=== PATIENT | female | born 1970 | race Caucasian/White ===

== ENCOUNTER 2018-03-06 14:42 | Day surgery (SDC) | payer OTHER ==
[2018-03-05 15:23] VITALS: BMI 28.1
[2018-03-06] MEDS ORDERED: PROPOFOL 20 ML ONE (15:57)
[2018-03-06] MEDS ORDERED: MIDAZOLAM HCL 2 MG/2 ML SINGLE DOSE VIAL ONE (15:57)
[2018-03-06] MEDS ORDERED: KETOROLAC TROMETHAMINE 30 MG/1 ML VIAL ONE (16:53)
--- NOTE | 2018-03-06 16:56 | OP ---
Operative Note - Note: Operative Date: 03/06/18 Pre-Operative Diagnosis: Menometrorrhagia, cervical leukoplakia Operation: Hysteroscopy, D&C, cervical Bx Findings: Normal uterine cavity w/o lesions Post-Operative Diagnosis: Same as Pre-op Surgeon: Felix Hobbs Anesthesiologist/[employer] EXECUTIVE: Praveen Minaya Anesthesia: General Specimens Removed: Cervical Bx, endometrial curettings Estimated Blood Loss (mls): 5 Blood Volume Replaced (mls): 0 Fluid Volume Replaced (mls): 700 Operative Report Dictated: Yes
[2018-03-06] MEDS ORDERED: ACETAMINOPHEN INJECTION 100 ML IVPB ONE (17:29)
[2018-03-06] MEDS ORDERED: ONDANSETRON 4 MG/2 ML VIAL IVPUSH PRN (18:37)
[2018-03-06] MEDS ORDERED: ACETAMINOPHEN 1000 MG/100 ML VIAL (NON FORMULARY) IVPB ONE (18:38)
[2018-03-06] MEDS ORDERED: LACTATED RINGERS SOLUTION 1,000 ML IV SCH (18:45)
[2018-03-06 19:31] VITALS: BP 127/77; PULSE 60; TEMP 98
--- NOTE | 2018-03-07 07:48 | OP ---
DATE OF OPERATION: 03/06/2018 PREOPERATIVE DIAGNOSIS: Menometrorrhagia, cervical leukoplakia. POSTOPERATIVE DIAGNOSIS: Menometrorrhagia, cervical leukoplakia. PROCEDURE: Hysteroscopy, dilatation and curettage, cervical biopsy. SURGEON: Felix Hobbs MD ANESTHESIA: General. COMPLICATIONS: None. ESTIMATED BLOOD LOSS: 5 mL PATHOLOGY: Endometrial curettings, cervical biopsy. FINDINGS: Examination under anesthesia revealed a slightly retroverted uterus with mild hypertrophy. The cervix had a small area of leukoplakia at approximately 11 to 12 o'clock. During hysteroscopy, a slightly enlarged endometrial cavity was noted. There were no lesions. DESCRIPTION OF PROCEDURE: The patient was met preoperatively. Risks, benefits, and alternatives of surgery were discussed. All questions were answered. The patient was brought to the OR with the IV running. She was placed on the surgical table in the supine position. The general anesthesia was achieved without difficulty. The patient was then placed in a dorsal lithotomy position using adjustable Anuj stirrups. She was examined under anesthesia with the findings as described above. A timeout was conducted as per standard protocol. The patient was prepped and draped in the usual sterile fashion. A weighted speculum was introduced inside the vagina with good visualization of the cervix. The cervix was examined, and a previously observed area of leukoplakia between 11 and 12 o'clock was noted. That area was biopsied. Hysteroscopy was then performed. A diagnostic hysteroscope was introduced through the cervical canal and into the uterine cavity with the findings as described above. There were no lesions. A slightly enlarged but normal endometrial cavity was observed. The hysteroscope was then removed. A sharp uterine curettage was performed. The tissue was sent to Pathology. Once the procedure was completed, all of the instruments were removed from the patient. Good hemostasis was confirmed. Sponge, lap, and instrument counts were correct. The patient was transferred to recovery room in stable condition. Santhosh [id number]
--- NOTE | 2018-03-11 17:42 | PATH ---
Surgical Pathology Report Patient Name: MELINDA VILLATORO [facility]. Rec. #: [id number] /Age/Gender: 1970 (Age: 47) / F Account: [id number] Location: [facility] Taken: 03/06/2018 Received: 03/07/2018 Reported: 03/11/2018 Physicians: Felix Hobbs M.D. Specimen(s) Received A: CERVICAL BIOPSY B: CERVICAL CURETTINGS Clinical History Fibroid uterus, leukoplakia of cervix, excessive bleeding Final Diagnosis A. CERVICAL, BIOPSY: BENIGN CERVICAL MUCOSA WITH FOCAL PARAKERATOSIS. SEE COMMENT. B. CERVICAL CURETTINGS, DILATION AND CURETTAGE: WEAKLY PROLIFERATIVE ENDOMETRIUM WITH ENDOMETRIAL AND STROMAL BREAKDOWN, SURFACE MYOMETRIUM, AND SCANT BENIGN CERVICAL TISSUE. Comment: Part A, immunohistochemical stains performed at [place], [place] ([id number]) and interpreted at [facility] show p16 shows weak patchy staining. Proliferative marker, Ki-67, was utilized to evaluate this case. Electronically Signed Ksenia Garcia M.D. Gross Description A. Received in formalin labeled "cervical biopsy," is a 0.7 cm in greatest dimension li, irregular portion of soft tissue. The specimen is submitted in toto in one cassette. B. Received in formalin labeled "cervical curettings" is a 2.5 x 2.4 x 0.3 cm aggregate of li-brown soft tissue fragments. The formalin is filtered and the specimen is entirely submitted in one cassette. /03/07/2018 saudi03/07/2018
== END 2018-03-06 19:45 | disposition home or self-care (01) ==
LOC: JASU-SURG 14:42
PROVIDERS: ATTEND Obstetrics & Gynecology
PROC: 0UBC8ZX Excision of Cervix, Via Natural or Artificial Opening Endoscopic, Diagnostic (ICD-10-PCS; principal; 2018-03-06 16:00)
PROC: 0UDB7ZX Extraction of Endometrium, Via Natural or Artificial Opening, Diagnostic (ICD-10-PCS; 2018-03-06 16:00)
DX: N92.1 Excessive and frequent menstruation with irregular cycle (principal); N88.0 Leukoplakia of cervix uteri
CPT/HCPCS: 86850; 86900; 86901; 88305-TC; 94760; J0131

== ENCOUNTER 2020-10-15 11:06 | Emergency (ER) | payer OTHER ==
[2020-10-15 11:20] VITALS: BP 120/79; PULSE 65; TEMP 97.5; BMI 29.4
== END 2020-10-15 12:26 | disposition home or self-care (01) ==
LOC: JER 11:06 → JERFT 11:06
DX: S90.129A Contusion of unspecified lesser toe(s) without damage to nail, initial encounter (principal)
CPT/HCPCS: 73630-TC-RT-FY; 99283-25

== ENCOUNTER 2021-12-09 14:30 | Emergency (ER) | payer OTHER ==
[2021-12-09 14:42] VITALS: BP 142/86; PULSE 67; RESP 16; TEMP 98.3; BMI 28.8
[2021-12-09] MEDS ORDERED: FAMOTIDINE 20 MG/50 ML IVPB 20 MG/50 ML MG IVPB ONE ×2 (16:00→16:26)
[2021-12-09] MEDS ORDERED: KETOROLAC TROMETHAMINE 30 MG/1 ML VIAL IVPUSH ONE (16:00)
[2021-12-09] MEDS ORDERED: MAG HYDROX/AL HYDROX/SIMETH 30 ML UNIT-DOSE CUP PO ONE (16:01)
[2021-12-09] MEDS ORDERED: MAG HYDROX/AL HYDROX/SIMETH 30 ML UNIT-DOSE CUP ONE (16:25)
[2021-12-09] MEDS ORDERED: KETOROLAC TROMETHAMINE 30 MG/1 ML VIAL ONE (16:26)
[2021-12-09] MEDS ORDERED: SODIUM CHLORIDE 0.9% 500 ML INFUS.BAG IV ONE (16:58)
[2021-12-09 17:23] LABS: BASO % 0.6 % (0-2.0); EOS % 1.3 % (0-4.5); HEMATOCRIT 40.1 % (32.4-45.2); HEMOGLOBIN 13.8 GM/dL (10.7-15.3); LYMPH % 29.1 % (8-40); MCH 29.8 pg (25.7-33.7); MCHC 34.5 g/dl (32.0-36.0); MEAN CELL VOLUME 86.2 fl (80-96); MEAN PLT VOLUME 8.7 fl (7.5-11.1); MONO % 5.1 % (3.8-10.2); NEUT % 63.9 % (42.8-82.8); PLATELET COUNT 215 10^3/uL (134-434); RBC 4.65 M/mm3 (3.60-5.2); RDW 13.4 % (11.6-15.6); WHITE BLOOD COUNT 7.4 K/mm3 (4.0-10.0)
[2021-12-09 17:24] LABS: URINE APPEARANCE CLEAR; URINE BILIRUBIN NEGATIVE (NEGATIVE); URINE COLOR YELLOW; URINE GLUCOSE (UA) NEGATIVE (NEGATIVE); URINE KETONE NEGATIVE (NEGATIVE); URINE LEUK ESTERASE NEGATIVE (NEGATIVE); URINE NITRITE NEGATIVE (NEGATIVE); URINE PROTEIN NEGATIVE (NEGATIVE); URINE UROBILINOGEN 0.2 mg/dL (0.2-1.0)
[2021-12-09 17:37] LABS: CALCIUM 8.8 mg/dL (8.5-10.1)
[2021-12-09 17:38] LABS: BLOOD UREA NITROGEN 8.3 mg/dL (7-18)
[2021-12-09 17:41] LABS: CREATININE 0.7 mg/dL (0.55-1.3)
[2021-12-09 17:43] LABS: BILIRUBIN,TOTAL 0.9 mg/dL (0.2-1); TOT PROT 7.2 g/dl (6.4-8.2)
== END 2021-12-09 19:27 | disposition home or self-care (01) ==
LOC: JER 14:30
PROC: 3E033GC Introduction of Other Therapeutic Substance into Peripheral Vein, Percutaneous Approach (ICD-10-PCS; principal; 2021-12-09)
PROC: 3E0333Z Introduction of Anti-inflammatory into Peripheral Vein, Percutaneous Approach (ICD-10-PCS; 2021-12-09)
DX: R10.9 Unspecified abdominal pain (principal)
CPT/HCPCS: 36415; 76700-TC; 80053; 81003; 83690; 84703; 85025; 87086; 87186; 99284-25

== ENCOUNTER 2022-06-04 10:14 | Emergency (ER) | payer OTHER ==
[2022-06-04 10:31] VITALS: BP 118/72; PULSE 82; RESP 18; TEMP 98.2; BMI 29.0
[2022-06-04] MEDS ORDERED: ACETAMINOPHEN 325 MG TABLET (FP) PO ONE (11:30)
[2022-06-04] MEDS ORDERED: DEXAMETHASONE 4 MG TABLET (FP) PO ONE (11:30)
[2022-06-04] MEDS ORDERED: KETOROLAC TROMETHAMINE 30 MG/1 ML VIAL IM ONE (11:30)
[2022-06-04] MEDS ORDERED: ACETAMINOPHEN 325 MG TABLET (FP) ONE (11:49)
[2022-06-04] MEDS ORDERED: DEXAMETHASONE 4 MG TABLET (FP) ONE (11:49)
[2022-06-04] MEDS ORDERED: KETOROLAC TROMETHAMINE 30 MG/1 ML VIAL ONE (11:49)
[2022-06-04] MEDS ORDERED: ONDANSETRON 4 MG TABLET PO ONE ×2 (12:04→12:07)
[2022-06-04] MEDS ORDERED: LIDOCAINE VISCOUS 2% ORAL/TOP 15 ML UNIT-DOSE CUP MM ONE (12:04)
[2022-06-04] MEDS ORDERED: LIDOCAINE VISCOUS 2% ORAL/TOP 15 ML UNIT-DOSE CUP ONE (12:12)
== END 2022-06-04 14:23 | disposition home or self-care (01) ==
LOC: JER 10:14
PROC: 3E023GC Introduction of Other Therapeutic Substance into Muscle, Percutaneous Approach (ICD-10-PCS; principal; 2022-06-04)
DX: J02.8 Acute pharyngitis due to other specified organisms (principal)
CPT/HCPCS: 0241U-QW; 36415; 86308; 87651; 99284-25

== ENCOUNTER 2023-07-01 11:34 | Emergency (ER) | payer OTHER ==
[2023-07-01 11:40] VITALS: BP 155/65; PULSE 72; RESP 18; TEMP 96.9; BMI 28.5
[2023-07-01] MEDS ORDERED: LIDOCAINE 4% PATCH TP ONE (12:02)
[2023-07-01] MEDS ORDERED: KETOROLAC TROMETHAMINE 30 MG/1 ML VIAL ONE (12:02)
[2023-07-01] MEDS ORDERED: ACETAMINOPHEN 500 MG TABLET (FP) ONE (12:03)
[2023-07-01] MEDS: ACETAMINOPHEN 500 MG TABLET (FP) PO ONE (12:13)
[2023-07-01] MEDS: LIDOCAINE 4% PATCH TP ONE (12:13)
[2023-07-01] MEDS: KETOROLAC TROMETHAMINE 30 MG/1 ML VIAL IM ONE (12:14)
[2023-07-01] MEDS ORDERED: LIDOCAINE PATCH REMOVAL MC ONE (22:00)
== END 2023-07-01 12:20 | disposition home or self-care (01) ==
LOC: JER 11:34 → JERFT 11:34
PROC: 3E0233Z Introduction of Anti-inflammatory into Muscle, Percutaneous Approach (ICD-10-PCS; principal; 2023-07-01)
DX: M54.2 Cervicalgia (principal); M25.512 Pain in left shoulder; M62.838 Other muscle spasm
CPT/HCPCS: 99284-25

== ENCOUNTER 2023-10-13 12:55 | Emergency (ER) | payer OTHER ==
[2023-10-13 13:06] VITALS: BP 144/77; PULSE 93; RESP 18; TEMP 98.3; BMI 27.3
[2023-10-13] MEDS ORDERED: CYCLOBENZAPRINE HCL 5 MG TABLET ONE (13:45)
[2023-10-13] MEDS ORDERED: KETOROLAC TROMETHAMINE 30 MG/1 ML VIAL ONE (13:45)
[2023-10-13] MEDS ORDERED: IBUPROFEN 400 MG TABLET (FP) PO ONE (13:50)
[2023-10-13] MEDS: CYCLOBENZAPRINE HCL 10 MG TABLET (FP) PO ONE (13:51)
[2023-10-13] MEDS: KETOROLAC TROMETHAMINE 30 MG/1 ML VIAL IM ONE (13:51)
[2023-10-13] MEDS: IBUPROFEN 400 MG TABLET (FP) PO ONE (13:54)
[2023-10-13] MEDS ORDERED: LIDOCAINE 4% PATCH TP ONE (14:47)
[2023-10-13] MEDS: LIDOCAINE 5% TOPICAL PATCH TP ONE (14:50)
[2023-10-13] MEDS ORDERED: LIDOCAINE PATCH REMOVAL MC SCH (22:00)
== END 2023-10-13 15:03 | disposition home or self-care (01) ==
LOC: JERFT 12:55
DX: S43.421A Sprain of right rotator cuff capsule, initial encounter (principal); M62.838 Other muscle spasm; X50.1XXA Overexertion from prolonged static or awkward postures, initial encounter
CPT/HCPCS: 99283-25